=== PATIENT | female | born 1950 | race Caucasian/White ===

== ENCOUNTER 2022-10-10 22:12 | Observation (INO) | payer MEDICARE, OTHER ==
--- NOTE | 2022-10-10 22:19 | ED ---
General Adult HPI - General Source: RN notes reviewed <Simran Blackmon - Last Filed: 10/10/22 22:17> - General Source: RN notes reviewed, old records reviewed Limitations: no limitations - History of Present Illness -: hour(s) Radiation: non-radiation Severity scale (1-10): 7 Consistency: constant Improves with: none Worsens with: none Associated Symptoms: chest pain Treatments Prior to Arrival: none <Simeon Singer - Last Filed: 10/14/22 20:42> - General Stated complaint: Afib Time Seen by Provider: 10/10/22 22:18 - History of Present Illness Initial comments: 72 year old female with a past medical history significant for atrial fibrillation presents to the emergency department with a chief complaint of palpitations and chest pain x 1 hour. Denies nausea, vomiting, dizziness. (Simran Blackmon) This is a 72-year-old female to the emergency department for evaluation of chest pain, history of A. fib on [place]. Patient had chest pain palpitations and is concerned that if she A. fib with elevated heart rate. Patient has worsening pain when she takes a deep breath and worsening pain with exertion or movement. Patient does have high blood pressure high cholesterol. (Simeon Singer) - Related Data Home Medications Medication Instructions Recorded Confirmed Apixaban [Eliquis] 5 mg PO BID 10/11/22 10/11/22 Atorvastatin [Lipitor] 40 mg PO DAILY 10/11/22 10/11/22 Cholecalciferol [Vitamin D3 (125 125 mcg PO DAILY 10/11/22 10/11/22 Mcg = 5000 Iu)] FLUoxetine HCL [PROzac] 20 mg PO DAILY 10/11/22 10/11/22 Multivitamins, Thera [Multivitamin 1 tab PO DAILY 10/11/22 10/11/22 (formulary)] Omeprazole [PriLOSEC] 20 mg PO DAILY 10/11/22 10/11/22 Sotalol [Betapace] 40 mg PO BID 10/11/22 10/11/22 Vibegron [Gemtesa] 75 mg PO HS 10/11/22 10/11/22 buPROPion SR [Wellbutrin SR] 150 mg PO BID 10/11/22 10/11/22 Allergies Allergy/AdvReac Type Severity Reaction Status Date / Time morphine AdvReac Abdominal Verified 10/11/22 07:24 Pain Review of Systems ROS Other: All systems not noted in ROS Statement are negative. <Simran Blackmon - Last Filed: 10/10/22 22:17> ROS Other: All systems not noted in ROS Statement are negative. <MakaylakyreeSimeon Chuck - Last Filed: 10/14/22 20:42> ROS Statement: Those systems with pertinent positive or pertinent negative responses have been documented in the HPI. Past Medical History - Past Family History Father Family Medical History: No Reported History Mother Family Medical History: Hypertension Additional Family Medical History / Comment(s): mom at age of 94 <Simeon Singer - Last Filed: 10/14/22 20:42> General Exam <NeymarSimran - Last Filed: 10/10/22 22:17> General appearance: alert, in no apparent distress, anxious Head exam: Present: atraumatic, normocephalic, normal inspection Eye exam: Present: normal appearance, PERRL, EOMI. Absent: scleral icterus, conjunctival injection, periorbital swelling ENT exam: Present: normal exam, mucous membranes moist Neck exam: Present: normal inspection. Absent: tenderness, meningismus, lymphadenopathy Respiratory exam: Present: normal lung sounds bilaterally. Absent: respiratory distress, wheezes, rales, rhonchi, stridor Cardiovascular Exam: Present: regular rate, normal rhythm, normal heart sounds. Absent: systolic murmur, diastolic murmur, rubs, gallop, clicks GI/Abdominal exam: Present: soft, normal bowel sounds. Absent: distended, tenderness, guarding, rebound, rigid Extremities exam: Present: normal inspection, full ROM, normal capillary refill. Absent: tenderness, pedal edema, joint swelling, calf tenderness Back exam: Present: normal inspection Neurological exam: Present: alert, oriented X3, CN II-XII intact Psychiatric exam: Present: normal affect, normal mood Skin exam: Present: warm, dry, intact, normal color. Absent: rash <LucreciaSimeon - Last Filed: 10/14/22 20:42> - General Exam Comments Initial Comments: Visual Physical Exam Vital signs reviewed General: Well-appearing, nontoxic, no acute distress. Head: Normocephalic, atraumatic Eyes: PERRLA, EOMI ENT: Airway patent Chest: Nonlabored breathing Skin: No visual rash, normal skin tone Neuro: Alert and oriented 3 Musculoskeletal: No gross abnormalities I performed the quick note portion of this exam, verbal signature Simran colorado PA-C (Simran Blackmon) Course <Simeon Singer - Last Filed: 10/14/22 20:42> Vital Signs 10/10/22 10/11/22 10/11/22 22:18 02:00 04:00 Temperature 98.8 F Pulse Rate 82 73 81 Pulse Rate [ Pulse Oximetery ] Respiratory 18 16 16 Rate Blood Pressure 139/74 139/73 117/75 Blood Pressure [Left Arm] O2 Sat by Pulse 98 100 97 Oximetry 10/11/22 10/11/22 06:00 07:00 Temperature 98.5 F Pulse Rate 80 Pulse Rate [ 77 Pulse Oximetery ] Respiratory 16 18 Rate Blood Pressure 106/61 Blood Pressure 108/69 [Left Arm] O2 Sat by Pulse 97 97 Oximetry - Reevaluation(s) Reevaluation #1: 10/11/22 01:41 Medical records reviewed (Simeon Singer) Reevaluation #2: 10/11/22 01:41 Patient symptoms are unchanged, still with chest pain (Simeon Singer) Reevaluation #3: 10/11/22 01:41 Patient informed results questions answered (Simeon Singer) Reevaluation #4: 10/11/22 01:41 Was pt. sent in by a medical professional or institution ([facility], [facility], urgent care, hospital, or senior living...) When possible be specific @ -no Did you speak to anyone other than the patient for history (EMS, parent, family, police, friend...)? What history was obtained from this source @ -no Did you review nursing and triage notes (agree or disagree)? Why? @ -agree Are old charts reviewed (outside hosp., previous admission, EMS record, old EKG, old radiological studies, urgent care reports/EKG's, senior living records)? Report findings @ -yes Differential Diagnosis (chest pain, altered mental status, abdominal pain women, abdominal pain men, vaginal bleeding, weakness, fever, dyspnea, syncope, headache, dizziness, GI bleed, back pain, seizure, CVA, palpatations, mental health, musculoskeletal)? @ -prior EKG interpreted by me (3pts min.). @ -yes X-rays interpreted by me (1pt min.). @ -yes CT interpreted by me (1pt min.). @ -no U/S interpreted by me (1pt. min.). @ -no What testing was considered but not performed or refused? (CT, X-rays, U/S, labs)? Why? @ -none What meds were considered but not given or refused? Why? @ -none Did you discuss the management of the patient with other professionals (professionals i.e. , PA, [facility], lab, RT, psych nurse, social worker aide, casing material weigher, teacher, driver license reviewing officer, director of casework department)? Give summary @ -no Was smoking cessation discussed for >3mins.? @ -no Was critical care preformed (if so, how long)? @ -no Were there social determinants of health that impacted care today? How? (Homelessness, low income, unemployed, alcoholism, drug addiction, transportation, low edu. Level, literacy, decrease access to med. care, half-way, rehab)? @ -none Was there de-escalation of care discussed even if they declined (Discuss DNR or withdrawal of care, Hospice)? DNR status @ -no What co-morbidities impacted this encounter? (DM, HTN, Smoking, COPD, CAD, Cancer, CVA, ARF, Chemo, Hep., AIDS, mental health diagnosis, sleep apnea, morbid obesity)? @ -none Was patient admitted / discharged? Hospital course, mention meds given and route, prescriptions, significant lab abnormalities, going to OR and other pertinent info. @ - Undiagnosed new problem with uncertain prognosis? @ -no Drug Therapy requiring intensive monitoring for toxicity (Heparin, Nitro, Insulin, Cardizem)? @ -no Were any procedures done? @ -no Diagnosis/symptom? @ - Acute, or Chronic, or Acute on Chronic? @ -Acute Uncomplicated (without systemic symptoms) or Complicated (systemic symptoms)? @ -Complicated Side effects of treatment? @ -no Exacerbation, Progression, or Severe Exacerbation? @ -exacerbation Poses a threat to life or bodily function? How? (Chest pain, USA, MO, pneumonia, PE, COPD, DKA, ARF, appy, cholecystitis, CVA, Diverticulitis, Homicidal, Suicidal, threat to staff... and all critical care pts) @ -yes (Simeon Singer) Reevaluation #5: 10/11/22 01:41 Differential Chest Pain: Stable Angina, Unstable Angina, STEMI, NSTEMI Aortic Dissection, Pneumothorax, Musculoskeletal, Esophageal Spasm GERD, Cholecystitis, Pancreatitis, Zoster, this is not meant to be an all-inclusive list. Differential Palpitations Ventricular arrhythmias, atrial arrhythmias, myocardial infarction, anemia, thyrotoxicosis, electrolyte imbalance, hypokalemia, pulmonary embolism, pulmonary disease, drugs, alcohol, anxiety, stress.... This is not meant to be an all-inclusive list. (Simeon Singer) - Consultations Consultation #1: Spoke with [facility] who agreed to admit (Simeon Singer) EKG Findings - EKG Comments: EKG Findings:: EKG sinus 79 MO 158 QRS 77 QTc 387 <Simeon Singer - Last Filed: 10/14/22 20:42> Medical Decision Making - Lab Data Result diagrams: 10/10/22 22:35 10/10/22 22:35 - EKG Data -: EKG Interpreted by Me - Radiology Data Radiology results: report reviewed (Chest x-rays negative for acute disease), image reviewed <Simeon Sniger - Last Filed: 10/14/22 20:42> - Medical Decision Making 72 female to the emergency department for evaluation. Patient to the ER for evaluation of chest pain persistent chest pain, pleuritic type chest pain here in the emergency room. Patient will be admitted for chest pain observation with persistent chest pain history of cardiac risk factors to the emergency departme nt, patient is on anticoagulation will not need heparin here in the ER (Simeon Singer) - Lab Data Lab Results 10/10/22 10/10/22 10/10/22 Range/Units 22:35 22:35 22:35 WBC 9.6 (3.8-10.6) k/uL RBC 4.51 (3.80-5.40) m/uL Hgb 13.4 (11.4-16.0) gm/dL Hct 41.9 (34.0-46.0) % MCV 93.0 (80.0-100.0) fL MCH 29.8 (25.0-35.0) pg MCHC 32.0 (31.0-37.0) g/dL RDW 13.5 (11.5-15.5) % Plt Count 229 (150-450) k/uL MPV 6.8 Neutrophils % 63 % Lymphocytes % 28 % Monocytes % 5 % Eosinophils % 3 % Basophils % 0 % Neutrophils # 6.1 (1.3-7.7) k/uL Lymphocytes # 2.7 (1.0-4.8) k/uL Monocytes # 0.4 (0-1.0) k/uL Eosinophils # 0.3 (0-0.7) k/uL Basophils # 0.0 (0-0.2) k/uL PT 12.7 H (9.0-12.0) sec INR 1.2 H (<1.2) APTT 24.2 (22.0-30.0) sec Sodium 139 (137-145) mmol/L Potassium 3.9 (3.5-5.1) mmol/L Chloride 105 (98-107) mmol/L Carbon Dioxide 27 (22-30) mmol/L Anion Gap 7 mmol/L BUN 22 H (7-17) mg/dL Creatinine 0.77 (0.52-1.04) mg/dL Est GFR (CKD-EPI)AfAm 90 (>60 ml/min/1.73 sqM) Est GFR (CKD-EPI)NonAf 78 (>60 ml/min/1.73 sqM) Glucose 107 H (74-99) mg/dL Calcium 8.5 (8.4-10.2) mg/dL Magnesium 2.0 (1.6-2.3) mg/dL Total Bilirubin 0.4 (0.2-1.3) mg/dL AST 20 (14-36) U/L ALT 16 (4-34) U/L Alkaline Phosphatase 116 (38-126) U/L Troponin I (0.000-0.034) ng/mL Total Protein 6.4 (6.3-8.2) g/dL Albumin 3.7 (3.5-5.0) g/dL 08/23/23 Range/Units 22:35 WBC (3.8-10.6) k/uL RBC (3.80-5.40) m/uL Hgb (11.4-16.0) gm/dL Hct (34.0-46.0) % MCV (80.0-100.0) fL MCH (25.0-35.0) pg MCHC (31.0-37.0) g/dL RDW (11.5-15.5) % Plt Count (150-450) k/uL MPV Neutrophils % % Lymphocytes % % Monocytes % % Eosinophils % % Basophils % % Neutrophils # (1.3-7.7) k/uL Lymphocytes # (1.0-4.8) k/uL Monocytes # (0-1.0) k/uL Eosinophils # (0-0.7) k/uL Basophils # (0-0.2) k/uL PT (9.0-12.0) sec INR (<1.2) APTT (22.0-30.0) sec Sodium (137-145) mmol/L Potassium (3.5-5.1) mmol/L Chloride (98-107) mmol/L Carbon Dioxide (22-30) mmol/L Anion Gap mmol/L BUN (7-17) mg/dL Creatinine (0.52-1.04) mg/dL Est GFR (CKD-EPI)AfAm (>60 ml/min/1.73 sqM) Est GFR (CKD-EPI)NonAf (>60 ml/min/1.73 sqM) Glucose (74-99) mg/dL Calcium (8.4-10.2) mg/dL Magnesium (1.6-2.3) mg/dL Total Bilirubin (0.2-1.3) mg/dL AST (14-36) U/L ALT (4-34) U/L Alkaline Phosphatase (38-126) U/L Troponin I <0.012 (0.000-0.034) ng/mL Total Protein (6.3-8.2) g/dL Albumin (3.5-5.0) g/dL Critical Care Time Critical Care Time: Yes Total Critical Care Time: 31 <Simeon Singer - Last Filed: 10/14/22 20:42> Disposition <Simran Blackmon - Last Filed: 10/10/22 22:17> Is patient prescribed a controlled substance at d/c from ED?: No Time of Disposition: 01:40 <Simeon Singer - Last Filed: 10/14/22 20:42> Clinical Impression: Chest pain, Unstable angina Disposition: HOME SELF-CARE Condition: Stable
[2022-10-10 22:52] LABS: Basophils % (A) 0 %; Eosinophils # (A) 0.3 k/uL (0-0.7); Eosinophils % (A) 3 %; HCT 41.9 % (34.0-46.0); HGB 13.4 gm/dL (11.4-16.0); Lymphocytes # (A) 2.7 k/uL (1.0-4.8); Lymphocytes % (A) 28 %; MCH 29.8 pg (25.0-35.0); Mean Platelet Volume 6.8; Monocytes # (A) 0.4 k/uL (0-1.0); Monocytes % (A) 5 %; Neutrophils # (A) 6.1 k/uL (1.3-7.7); Neutrophils % (A) 63 %; Platelet Count 229 k/uL (150-450); RBC 4.51 m/uL (3.80-5.40); RDW 13.5 % (11.5-15.5); WBC 9.6 k/uL (3.8-10.6)
[2022-10-10 23:00] LABS: INR 1.2 (<1.2); Partial Thromboplastin Time 24.2 sec (22.0-30.0); Prothrombin Time 12.7 sec (9.0-12.0)
[2022-10-10 23:03] LABS: ALT 16 U/L (4-34); AST 20 U/L (14-36); African American GFR (CKD) 90 (>60 ml/min/1.73 sqM); Albumin 3.7 g/dL (3.5-5.0); Alkaline Phosphatase 116 U/L (38-126); Anion Gap 7 mmol/L; Blood Urea Nitrogen 22 mg/dL (7-17); Calcium 8.5 mg/dL (8.4-10.2); Carbon Dioxide 27 mmol/L (22-30); Chloride 105 mmol/L (98-107); Glucose 107 mg/dL (74-99); Non-African American GFR(CKD) 78 (>60 ml/min/1.73 sqM); Potassium 3.9 mmol/L (3.5-5.1); Sodium 139 mmol/L (137-145); Total Bilirubin 0.4 mg/dL (0.2-1.3); Total Protein 6.4 g/dL (6.3-8.2)
--- NOTE | 2022-10-10 23:28 | XR ---
EXAM: XR Chest, 2 Views CLINICAL HISTORY: ITS.REASON XR Reason: CHest pain TECHNIQUE: Frontal and lateral views of the chest. COMPARISON: No relevant prior studies available. FINDINGS: Lungs: Unremarkable. No consolidation. Pleural space: Unremarkable. No pneumothorax. Heart: Unremarkable. No cardiomegaly. Mediastinum: Unremarkable. Bones/joints: Unremarkable. Cholecystectomy. IMPRESSION: No focal infiltrate.
[2022-10-11] MEDS ORDERED: MORPHINE SULFATE 4 MG/ML SYRINGE IV PRN (01:42)
[2022-10-11] MEDS ORDERED: ONDANSETRON 4 MG/2 ML VIAL IVP PRN (01:42)
[2022-10-11] MEDS ORDERED: NALOXONE 0.4 MG/ML 1 ML VIAL IV PRN (01:42)
--- NOTE | 2022-10-11 08:58 | P.CRDCN ---
History of Present Illness History of present illness: This is Dr. Loyola dictating a consult on this patient The patient was interviewed and examined IMPRESSION / ASSESSMENT: Chest discomfort at rest radiating to the neck and lasting for a few hours Normal twelve-lead EKG during chest discomfort in the ER Hypertension Dyslipidemia History of atrial fibrillation, on anticoagulation Normal cardiac enzymes 3 Family history of DVT, her brother, no known genetic testing performed PLAN: 2-D echo and Doppler study to assess chronic structure and function Repeat twelve-lead EKG Ambulate in the hallways Watch for any recurrence of chest discomfort Observe on telemetry today Arrange for early follow-up with Dr. Sanford upon discharge HPI Patient stopped her daughter him the phone. She recently moved back to [place] She started experiencing precordial chest discomfort that went up into her neck. The pain lasted for a few hours and She came to the hospital The patient was still ongoing. Twelve-lead EKG was normal The treatment was given for the chest discomfort The pain gradually dissipated and this morning she has no discomfort 3 cardiac enzymes are normal Twelve-lead EKG during chest pain is normal Repeat EKG is awaited Labs are normal ROS: No fever chills or rigors, no cough, phlegm or expectoration, no nausea, vomiting or diarrhea, no hematuria, dysuria, no musculoskeletal complaints, no strokes or seizures, no skin lesions. EXAMINATION: Normal heart rates, absence of sinus tachycardia Afebrile Blood pressure 139/74 Heart sounds are normal No chest tenderness Lungs are clear Patient is comfortable lying flat in bed no chest discomfort REVIEW OF LABS, ECG & MEDICAL DATA Hemoglobin 13.4 Sodium 139 potassium 3.9 creatinine normal Troponin normal Past Medical History Past Medical History: Atrial Fibrillation, Hypertension History of Any Multi-Drug Resistant Organisms: None Reported Past Surgical History: Appendectomy, Cholecystectomy, Hysterectomy, Orthopedic Surgery Past Psychological History: No Psychological Hx Reported Smoking Status: Never smoker Past Alcohol Use History: None Reported Past Drug Use History: None Reported Medications and Allergies Home Medications Medication Instructions Recorded Confirmed Type Cholecalciferol [Vitamin D3 (125 125 mcg PO DAILY 10/11/22 10/11/22 History Mcg = 5000 Iu)] Eliquis (Unverified) 1 tab PO BID 10/11/22 10/11/22 History Gemtesa (Unverified) 1 tab PO HS 10/11/22 10/11/22 History Lipitor (Unverified) 1 tab PO DAILY 10/11/22 10/11/22 History Multivitamins, Thera [Multivitamin 1 tab PO DAILY 10/11/22 10/11/22 History (formulary)] Omeprazole [PriLOSEC] 20 mg PO DAILY 10/11/22 10/11/22 History Prozac (Unverified) 1 cap PO DAILY 10/11/22 10/11/22 History Sotalol (Unverified) 0.5 tab PO BID 10/11/22 10/11/22 History Wellbutrin Sr (Unverified) 1 tab PO BID 10/11/22 10/11/22 History Allergies Allergy/AdvReac Type Severity Reaction Status Date / Time morphine AdvReac Abdominal Verified 10/11/22 07:24 Pain Physical Exam Vitals: Vital Signs Temp Pulse Pulse Resp BP BP Pulse Ox 10/11/22 07:00 98.5 F 77 18 108/69 97 10/11/22 06:00 80 16 106/61 97 10/11/22 04:00 81 16 117/75 97 10/11/22 02:00 73 16 139/73 100 10/10/22 22:18 98.8 F 82 18 139/74 98 Intake and Output 10/10/22 10/11/22 10/11/22 22:59 06:59 14:59 Other: Weight 109.769 kg Results 10/10/22 22:35 10/10/22 22:35 Cardiac Enzymes 10/10/22 10/10/22 10/11/22 Range/Units 22:35 22:35 03:54 AST 20 (14-36) U/L Troponin I <0.012 <0.012 (0.000-0.034) ng/mL 10/11/22 Range/Units 06:12 AST (14-36) U/L Troponin I <0.012 (0.000-0.034) ng/mL Coagulation 10/10/22 Range/Units 22:35 PT 12.7 H (9.0-12.0) sec APTT 24.2 (22.0-30.0) sec CBC 10/10/22 Range/Units 22:35 WBC 9.6 (3.8-10.6) k/uL RBC 4.51 (3.80-5.40) m/uL Hgb 13.4 (11.4-16.0) gm/dL Hct 41.9 (34.0-46.0) % Plt Count 229 (150-450) k/uL Comprehensive Metabolic Panel 10/10/22 Range/Units 22:35 Sodium 139 (137-145) mmol/L Potassium 3.9 (3.5-5.1) mmol/L Chloride 105 (98-107) mmol/L Carbon Dioxide 27 (22-30) mmol/L BUN 22 H (7-17) mg/dL Creatinine 0.77 (0.52-1.04) mg/dL Glucose 107 H (74-99) mg/dL Calcium 8.5 (8.4-10.2) mg/dL AST 20 (14-36) U/L ALT 16 (4-34) U/L Alkaline Phosphatase 116 (38-126) U/L Total Protein 6.4 (6.3-8.2) g/dL Albumin 3.7 (3.5-5.0) g/dL Current Medications Generic Name Dose Route Start Last Admin Trade Name Freq PRN Reason Stop Dose Admin Morphine Sulfate 4 mg 10/11/22 01:42 Morphine Sulfate 4 Mg/Ml Syringe IV Q4HR PRN Severe Pain (Scale 7 to 10) Naloxone HCl 0.2 mg 10/11/22 01:42 Naloxone 0.4 Mg/Ml 1 Ml Vial IV Q2M PRN Opioid Reversal Ondansetron HCl 4 mg 10/11/22 01:42 Ondansetron 4 Mg/2 Ml Vial IVP Q8HR PRN Nausea And Vomiting Intake and Output 10/10/22 10/11/22 10/11/22 22:59 06:59 14:59 Other: Weight 109.769 kg 10/10/22 22:35 10/10/22 22:35
[2022-10-11] MEDS ORDERED: ATORVASTATIN 40 MG TAB PO SCH (12:15)
[2022-10-11] MEDS ORDERED: PANTOPRAZOLE 40 MG TABLET PO SCH (12:15)
[2022-10-11] MEDS ORDERED: SOTALOL 80 MG TAB PO SCH (12:15)
[2022-10-11] MEDS ORDERED: APIXABAN 5 MG TAB PO SCH (12:15)
[2022-10-11] MEDS ORDERED: CHOLECALCIFEROL 125 MCG (5000 IU) TABLET PO SCH (12:15)
[2022-10-11] MEDS ORDERED: buPROPion SR 150 MG TABLET.ER PO SCH (12:15)
[2022-10-11] MEDS ORDERED: MULTIVITAMINS, THERA 1 EACH TAB PO SCH (12:15)
[2022-10-11] MEDS ORDERED: FLUoxetine HCL 20 MG CAP PO SCH (12:15)
[2022-10-11 15:20] VITALS: BP 108/65; PULSE 80; RESP 20; TEMP 98.4
--- NOTE | 2022-10-11 15:24 | CA ---
Transthoracic Echo Report Name: Jazz Godoy Age: 72 Gender: F : 1950 Exam Date: 10/11/2022 09:40 Exam Location: [facility] Ht (in): 65 Wt (lb): 242 Ordering Physician: Adrian Loyola MD ([id number]) Attending/Referring Phys: David Sanchez MD ([id number]) Differential Tester Ryann Sandoval RDCS Procedure CPT: Indications: Chest Pain Cardiac Hx: Technical Quality: Fair Contrast 1: Total Dose (mL): Contrast 2: Total Dose (mL): MEASUREMENTS (Male / Female) Normal Values 2D ECHO LV Diastolic Diameter PLAX 4.2 cm 4.2 - 5.9 / 3.9 - 5.3 cm LV Systolic Diameter PLAX 2.8 cm IVS Diastolic Thickness 1.0 cm 0.6 - 1.0 / 0.6 - 0.9 cm LVPW Diastolic Thickness 1.3 cm 0.6 - 1.0 / 0.6 - 0.9 cm LV Relative Wall Thickness 0.6 RV Internal Dim ED PLAX 2.3 cm LA Volume 64.9 cm??? 18 - 58 / 22 - 52 cm??? M-MODE Aortic Root Diameter MM 3.5 cm LA Systolic Diameter MM 4.9 cm LA Ao Ratio MM 1.4 AV Cusp Separation MM 1.9 cm DOPPLER AV Peak Velocity 186.5 cm/s AV Peak Gradient 13.9 mmHg AV Mean Velocity 126.7 cm/s AV Mean Gradient 7.4 mmHg AV Velocity Time Integral 41.0 cm AI Peak Velocity 464.7 cm/s AI Peak Gradient 86.4 mmHg AI Pressure Half Time 559.7 ms LVOT Peak Velocity 123.7 cm/s LVOT Peak Gradient 6.1 mmHg LVOT Velocity Time Integral 29.3 cm MV Area PHT 2.5 cm??? Mitral E Point Velocity 128.7 cm/s Mitral A Point Velocity 140.0 cm/s Mitral E to A Ratio 0.9 MV Deceleration Time 299.3 ms MV E' Velocity 5.7 cm/s Mitral E to MV E' Ratio 22.7 TR Peak Velocity 250.7 cm/s TR Peak Gradient 25.1 mmHg Right Ventricular Systolic Press 30.1 mmHg FINDINGS Left Ventricle Mildly increased left ventricular wall thickness. Left ventricular cavity size normal. Normal left ventricular systolic function with no obvious regional wall motion abnormalities. Left ventricular ejection fraction is estimated at 55-60 %. Right Ventricle Normal right ventricular size and function. Right ventricular systolic pressure within normal limits. Right Atrium Normal right atrial size. Left Atrium Moderately increased left atrial volume. Mildly increased left atrial area. Mitral Valve Structurally normal mitral valve. No mitral stenosis or prolapse. Mild mitral regurgitation. Aortic Valve No aortic stenosis. Mild aortic regurgitation. Tricuspid Valve Structurally normal tricuspid valve. Mild tricuspid regurgitation. Pulmonic Valve Trace pulmonic regurgitation. Pericardium No pericardial effusion. Aorta Normal size aortic root and proximal ascending aorta. CONCLUSIONS Normal LV size and systolic function Left atrial enlargement Prominent pericardial stripe posteriorly Previewed by: Dr. Adrian Loyola MD (Electronically Signed) Final Date: 11 October 2022 15:23
--- NOTE | 2022-10-11 20:56 | P.HPIM ---
History of Present Illness H&P Date: 10/11/22 This is a 72-year-old female with history of atrial fibrillation, hypertension, anxiety depression. Patient is anticoagulated with eliquis, presents to the hospital with complaints of midsternal chest pain that started should the evening about 10 PM. Patient was not doing any activity when this pain started patient was also complaining of palpitations and shortness of breath and pleuritic chest pain. A chest x-ray was completed which was negative for any focal infiltrate or acute pulmonary process. EKG reveals sinus rhythm with heart rate of 79 patient is not in atrial fibrillation at the time of evaluation. Her troponin level has been negative 3. Patient was admitted to the hospital on her medicine with a consultation cardiology patient is currently in observation. Patient is denying any fever or chills she has no nausea vomiting or diarrhea she denies any dizziness or lightheadedness. She has no associated jaw pain or arm pain. At the time of my evaluation her chest pain has completely resolved. Cardiology is recommending an echocardiogram. REVIEW OF SYSTEMS: CONSTITUTIONAL: No fever, no malaise, no fatigue. HEENT: No recent visual problems or hearing problems. Denied any sore throat. CARDIOVASCULAR: reports chest pain mid with radiation to the jaw. resolved. or thopnea, PND, no palpitations, no syncope. PULMONARY: Reports shortness of breath and pleuritic chest pain. no cough, no hemoptysis. GASTROINTESTINAL: No diarrhea, no nausea, no vomiting, no abdominal pain. NEUROLOGICAL: No headaches, no weakness, no numbness. HEMATOLOGICAL: Denies any bleeding or petechiae. GENITOURINARY: Denies any burning micturition, frequency, or urgency. MUSCULOSKELETAL/RHEUMATOLOGICAL: Denies any joint pain, swelling, or any muscle pain. ENDOCRINE: Denies any polyuria or polydipsia. The rest of the 14-point review of systems is negative. PHYSICAL EXAMINATION: GENERAL: The patient is alert and oriented x3, not in any acute distress. Well developed, well nourished. HEENT: Pupils are round and equally reacting to light. EOMI. No scleral icterus. No conjunctival pallor. Normocephalic, atraumatic. No pharyngeal erythema. No thyromegaly. CARDIOVASCULAR: S1 and S2 present. No murmurs, rubs, or gallops. PULMONARY: Chest is clear to auscultation, no wheezing or crackles. ABDOMEN: Soft, nontender, nondistended, normoactive bowel sounds. No palpable organomegaly. MUSCULOSKELETAL: No joint swelling or deformity. EXTREMITIES: No cyanosis, clubbing, or pedal edema. NEUROLOGICAL: Gross neurological examination did not reveal any focal deficits. SKIN: No rashes. Assessment Chest pain troponin level negative x 3 no evidence for ACS. Palpitations patient may have flipped into afib which attributed to the chest discomfort. Symptoms have resolved and patient is in normal sinus rhythm. Hypertension Dyslipidemia Paroxysmal atrial fibrillation on anticoagulation. Family history of DVT GI prophylaxis DVT prophylaxis Full Code Plan Echocardiogram pending Cardiology evaluation Troponin negative, patient remains in atrial fibrillation no evidence for acute coronary syndrome. Patient if echo is normal will be dcd home to f/u with cardiology in the office. The impression and plan of care has been dictated by Mary Obrien Nurse Practitioner as directed. Dr. Kana MD I have performed a history and physical examination and medical decision making of this patient, discussed the same with the dictator, and agree with the dictators assessment and plan as written, documented as a scribe. Based on total visit time, I have performed more than 50% of this visit. Past Medical History Past Medical History: Atrial Fibrillation, Hypertension History of Any Multi-Drug Resistant Organisms: None Reported Past Surgical History: Appendectomy, Cholecystectomy, Hysterectomy, Orthopedic Surgery Past Psychological History: No Psychological Hx Reported Smoking Status: Never smoker Past Alcohol Use History: None Reported Past Drug Use History: None Reported - Past Family History Father Family Medical History: No Reported History Mother Family Medical History: Hypertension Additional Family Medical History / Comment(s): mom at age of 94 Medications and Allergies Home Medications Medication Instructions Recorded Confirmed Type Apixaban [Eliquis] 5 mg PO BID 10/11/22 10/11/22 History Atorvastatin [Lipitor] 40 mg PO DAILY 10/11/22 10/11/22 History Cholecalciferol [Vitamin D3 (125 125 mcg PO DAILY 10/11/22 10/11/22 History Mcg = 5000 Iu)] FLUoxetine HCL [PROzac] 20 mg PO DAILY 10/11/22 10/11/22 History Multivitamins, Thera [Multivitamin 1 tab PO DAILY 10/11/22 10/11/22 History (formulary)] Omeprazole [PriLOSEC] 20 mg PO DAILY 10/11/22 10/11/22 History Sotalol [Betapace] 40 mg PO BID 10/11/22 10/11/22 History Vibegron [Gemtesa] 75 mg PO HS 10/11/22 10/11/22 History buPROPion SR [Wellbutrin SR] 150 mg PO BID 10/11/22 10/11/22 History Allergies Allergy/AdvReac Type Severity Reaction Status Date / Time morphine AdvReac Abdominal Verified 10/11/22 07:24 Pain Physical Exam Vitals: Vital Signs Temp Pulse Pulse Resp BP BP Pulse Ox 10/11/22 07:00 98.5 F 77 18 108/69 97 10/11/22 06:00 80 16 106/61 97 10/11/22 04:00 81 16 117/75 97 10/11/22 02:00 73 16 139/73 100 10/10/22 22:18 98.8 F 82 18 139/74 98 Intake and Output 10/10/22 10/11/22 10/11/22 22:59 06:59 14:59 Other: Weight 109.769 kg Results CBC & Chem 7: 10/10/22 22:35 10/10/22 22:35 Labs: Abnormal Lab Results - Last 24 Hours (Table) 10/10/22 10/10/22 Range/Units 22:35 22:35 PT 12.7 H (9.0-12.0) sec INR 1.2 H (<1.2) BUN 22 H (7-17) mg/dL Glucose 107 H (74-99) mg/dL Assessment and Plan Time with Patient: Less than 30
--- NOTE | 2022-10-11 20:59 | P.DS ---
Providers Date of admission: 10/11/22 01:43 Attending physician: Rudy Alvarenga Consults: 10/11/22 01:42 Consult Physician Routine Consulting Provider: John Banuelos Consult Reason/Comments: cp Do you want consulting provider notified?: Yes Primary care physician: Braxton Suarez Hospital Course: Final Diagnosis 'Chest pain troponin level negative x 3 no evidence for ACS. Palpitations patient may have flipped into afib which attributed to the chest discomfort. Symptoms have resolved and patient is in normal sinus rhythm. Hypertension Dyslipidemia Paroxysmal atrial fibrillation on anticoagulation. Family history of DVT GI prophylaxis DVT prophylaxis Full Code Discharge Disposition Patient is stable for discharge home on same home medications. Patient to follow up with cardiology in the office. Hospital Course This is a 72-year-old female with history of atrial fibrillation, hypertension, anxiety depression. Patient is anticoagulated with eliquis, presents to the hospital with complaints of midsternal chest pain that started should the evening about 10 PM. Patient was not doing any activity when this pain started patient was also complaining of palpitations and shortness of breath and pleuritic chest pain. A chest x-ray was completed which was negative for any focal infiltrate or acute pulmonary process. EKG reveals sinus rhythm with heart rate of 79 patient is not in atrial fibrillation at the time of evaluation. Her troponin level has been negative 3. Patient was admitted to the hospital on her medicine with a consultation cardiology patient is currently in observation. Patient is denying any fever or chills she has no nausea vomiting or diarrhea she denies any dizziness or lightheadedness. She has no associated jaw pain or arm pain. At the time of my evaluation her chest pain has completely resolved. Echocardiogram has been done showing normal LV size and systolic function, left atrial enlargement, prominent pericardial stripe posteriorly. Cardiology has reviewed and patient cleared for discharge. Currently denying chest pain, denying shortness of breath. Lungs are clear S1 S2 auscultated, abdomen is soft and nontender. Patient will be DCd home. Please see medication reconcilation for a list of current medication. Thank you for allowing us to participate in the care of this patient. The impression and plan of care has been dictated by Mary Obrien Nurse Practitioner as directed. Dr. Kana MD I have performed a history and physical examination and medical decision making of this patient, discussed the same with the dictator, and agree with the dictators assessment and plan as written, documented as a scribe. Based on total visit time, I have performed more than 50% of this visit. Patient Condition at Discharge: Stable Plan - Discharge Summary Discharge Rx Participant: No New Discharge Prescriptions: Continue Cholecalciferol [Vitamin D3 (125 Mcg = 5000 Iu)] 125 mcg PO DAILY Sotalol [Betapace] 40 mg PO BID Atorvastatin [Lipitor] 40 mg PO DAILY Vibegron [Gemtesa] 75 mg PO HS FLUoxetine HCL [PROzac] 20 mg PO DAILY Omeprazole [PriLOSEC] 20 mg PO DAILY Multivitamins, Thera [Multivitamin (formulary)] 1 tab PO DAILY Apixaban [Eliquis] 5 mg PO BID buPROPion SR [Wellbutrin SR] 150 mg PO BID Discharge Medication List Apixaban [Eliquis] 5 mg PO BID 10/11/22 [History] Atorvastatin [Lipitor] 40 mg PO DAILY 10/11/22 [History] Cholecalciferol [Vitamin D3 (125 Mcg = 5000 Iu)] 125 mcg PO DAILY 10/11/22 [History] FLUoxetine HCL [PROzac] 20 mg PO DAILY 10/11/22 [History] Multivitamins, Thera [Multivitamin (formulary)] 1 tab PO DAILY 10/11/22 [History] Omeprazole [PriLOSEC] 20 mg PO DAILY 10/11/22 [History] Sotalol [Betapace] 40 mg PO BID 10/11/22 [History] Vibegron [Gemtesa] 75 mg PO HS 10/11/22 [History] buPROPion SR [Wellbutrin SR] 150 mg PO BID 10/11/22 [History] Follow up Appointment(s)/Referral(s): Radha Kent NPC [Family Provider] - 1-2 days David Sanchez MD [STAFF PHYSICIAN] - 10/12/22 4:00 pm Activity/Diet/Wound Care/Special Instructions: Activity Limited until follow-up Follow-up with primary care provider on discharge Continue taking medications as prescribed Follow-up with cardiology in one week as scheduled Discharge Disposition: HOME SELF-CARE
[2022-10-11] MEDS ORDERED: NON FORMULARY DRUG (Vibegron [Gemtesa] 75 MG Tablet) PO SCH (21:00)
== END 2022-10-11 16:34 | disposition home or self-care (01) ==
LOC: EC 22:12 → 6NMEDSUR 10-11 01:43
PROVIDERS: ADMIT Hospitalist; ATTEND Hospitalist
DX: R07.9 Chest pain, unspecified (principal); R00.2 Palpitations; I48.0 Paroxysmal atrial fibrillation; I10 Essential (primary) hypertension; E78.00 Pure hypercholesterolemia, unspecified; F41.9 Anxiety disorder, unspecified; F32.A Depression, unspecified; Z79.01 Long term (current) use of anticoagulants; Z79.899 Other long term (current) drug therapy; Z88.5 Allergy status to narcotic agent; Z82.49 Family history of ischemic heart disease and other diseases of the circulatory system
CPT/HCPCS: 99291; 36415; 93005; 93306; 80053; 83735; 84484 ×2; 85025; 85610; 85730; 71046; G0378; S0106; 80061; 83036

== ENCOUNTER → 2023-12-10 | Outpatient (CLI) | payer MEDICARE, OTHER ==
--- NOTE | 2023-12-10 17:58 | US ---
EXAMINATION TYPE: US kidneys/renal and bladder DATE OF EXAM: 12/10/2023 COMPARISON: US 11/15/2022 CLINICAL INDICATION: Female, 73 years old with history of N28.1 CYST OF KIDNEY, ACQUIRED; Cyst of kid marlin TECHNIQUE: Grayscale and color Doppler imaging of the bilateral kidneys and urinary bladder: FINDINGS: EXAM MEASUREMENTS: Right Kidney: 11.8 x 5.1 x 4.6 cm Left Kidney: 11.2 x 5.0 x 4.8 cm Right Kidney: *Hypoechoic area seen upper medial pole= 1.7 x 2.0 x 1.9 cm. Left Kidney: No hydronephrosis or masses seen Bladder: Appears anechoic Bilateral Jets seen: Yes No hydronephrosis or shadowing renal calculi. Cortical medullary differentiation is maintained bilate rally. Exophytic right upper medial pole hypoechoic 2.0 cm without internal color flow. Previously me asured up to 1.4 cm. No left renal lesions. Urinary bladder is anechoic with bilateral ureter jets id entified. IMPRESSION: Increased size of upper pole hypoechoic right renal cortical lesion now measuring 2.0 cm, previously 1.4 cm. No internal color flow. Possible cortical cyst with malignancy not excluded. Recommend furthe r evaluation with CT or MR abdomen with IV contrast (renal mass protocol). [facility], , 12/10/2023 5:56 PM
== END | disposition home or self-care (01) ==
LOC: RADUSWWP 07:35
PROVIDERS: ATTEND Urology
DX: N28.1 Cyst of kidney, acquired (principal)
CPT/HCPCS: 76770

== ENCOUNTER → 2023-12-19 | Outpatient (CLI) | payer MEDICARE, OTHER ==
[2023-12-19 11:40] LABS: African American GFR (CKD) >90 (>60 ml/min/1.73 sqM); Blood Urea Nitrogen 17 mg/dL (7-17); Non-African American GFR(CKD) 87 (>60 ml/min/1.73 sqM)
--- NOTE | 2023-12-19 12:58 | CT ---
EXAMINATION TYPE: CT abdomen wo/w con DATE OF EXAM: 12/19/2023 COMPARISON: None CLINICAL INDICATION: Female, 73 years old with history of N28.1 RENAL CYST; PHH, rt side kidney cyst TECHNIQUE: Performed with Oral Contrast and without and with IV Contrast, patient injected with 100ml mL of Isov ue 300. CT DLP: 1973.[address] CTDI: mGy Automated exposure control for dose reduction was used. FINDINGS: The lung bases are clear. There is surgical absence of the gallbladder. There is no biliary ductal dilatation. There is no focal mass or organomegaly involving the liver, pancreas, spleen or adrenal glands. There is no solid renal mass or hydronephrosis and there is homogeneous contrast enhancement of the r enal parenchyma. There are 3 simple cysts in the right kidney the largest of which is approximately 2 cm is found on the upper pole. It is partially exophytic. The caliber the abdominal aorta is normal is no retroperitoneal adenopathy or hemorrhage. The bowel loops are normal in caliber and there is no evidence of dilatation or obstruction. No infla mmatory changes are identified in the bowel wall or mesentery. There is no free intraperitoneal air or fluid. The osseous structures and soft tissues are intact. IMPRESSION: 3 small cysts of the right kidney. There is no solid renal mass, renal calcification or hydronephrosi s. No other significant abnormalities within the abdomen. [facility], , 12/19/2023 12:56 PM
== END | disposition home or self-care (01) ==
LOC: RADCTMAIN 10:50
PROVIDERS: ATTEND Urology
CPT/HCPCS: 36415; 74170; 82565; 84520

== ENCOUNTER → 2024-03-20 | Outpatient (CLI) | payer MEDICARE, OTHER ==
[2024-03-20 15:12] LABS: ALT 16 U/L (8-44); AST 19 U/L (13-35); LDL Cholesterol,Calculated 68.6 mg/dL (0.0-131.0); VLDL Calculation 9.26 mg/dL (5.00-40.00)
== END | disposition home or self-care (01) ==
LOC: LABWHC1 11:08
PROVIDERS: ATTEND Internal Medicine Cardiovascular Disease
DX: E78.2 Mixed hyperlipidemia (principal)
CPT/HCPCS: 36415; 80061; 84450; 84460

== ENCOUNTER → 2024-08-06 | Outpatient (CLI) | payer MEDICARE, OTHER ==
--- NOTE | 2024-08-06 13:16 | BD ---
EXAMINATION TYPE: Axial Bone Density DATE OF EXAM: 08/06/2024 CLINICAL HISTORY: 74 years old Female. ICD-10 CODE: Z78.0 ASYMPTOMATIC MENOPAUSAL , Additional Hist ory: Height: 62 Weight: 230 FRAX RISK QUESTIONS: Family History (Parent hip fracture): yes History of Fracture in Adulthood: yes, multiple Secondary Osteoporosis: RISK FACTORS HISTORY OF: Hip Fracture (Right/Left): right femur and pelvis fracture When: 2018 History of Wrist Fracture: left wrist When: 2022 Surgery to Spine/Hip(right/left)/Wrist (right/left): none When: MEDICATIONS: EXAM MEASUREMENTS: Bone mineral densitometry was performed using the [email or web address] System. Bone mineral density as measured about the Lumbar spine is: ----- L1-L4(G/cm2): 1.093 T Score Values are as follows: ----- L1: -1.9 ----- L2: -2.4 ----- L3: 0.7 ----- L4: -0.1 ----- L1-L4: -0.7 Z Score Values are as follows: ----- L1: -1.4 ----- L2: -1.9 ----- L3: 1.2 ----- L4: 0.4 ----- L1-L4: -0.2 First dexa at [facility] Bone mineral density about the R hip (g/cm2): 0.780 Bone mineral density about the L hip (g/cm2): 0.795 T Score values are as follows: -----R Neck: -2.5 -----L Neck: -2.2 -----R Total: -1.8 -----L Total: -1.7 Z Score values are as follows: -----R Neck: -1.4 -----L Neck: -1.2 -----R Total: -1.0 -----L Total: -0.9 First dexa at [facility] FRAX%s: The graph provided illustrates a 33.7% chance for a major osteoporotic fx and a 17.1% chance for the hips probability for fx in 10 years time. IMPRESSION: Osteoporosis (T Score less than -2.5). There is increased fracture risk and therapy is usually indicated based on age. Re-Screen 1-2 years. NOTE: T-SCORE=SD OF THE YOUNG ADULT MEAN. [facility], , 08/06/2024 1:13 PM
--- NOTE | 2024-08-07 07:45 | MM ---
Reason for Exam: Screening (asymptomatic). Last mammogram was performed 1 year(s) and 2 month(s) ago. Patient History: Menarche at age 15. First Full-Term at age 22. Left ovary removed at age 47. Right ovary removed at age 47. Hysterectomy at age 47. Postmenopausal. Risk Values: Chantelle 5 year model risk: 1.4%. NCI Lifetime model risk: 3.6%. Tissue Density: There are scattered areas of fibroglandular density. Findings: Analyzed By CAD. Microclip left breast from prior biopsy. There is no suspicious group of microcalcifications or new suspicious mass in either breast. Overall Assessment: Negative, BI-RAD 1 Management: Screening Mammogram of both breasts in 1 year. Patient should continue monthly self-breast exams. A clinical breast exam by your physician is recommended on an annual basis. This exam should not preclude additional follow-up of suspicious palpable abnormalities. Note on Chantelle scores and lifetime risk: 1. A Chantelle score greater than 3% is considered moderate risk. If this is the case, consider specialist referral to assess eligibility for a risk reducing agent. 2. If overall lifetime risk for the development of breast cancer is 20% or higher, the patient may qualify for future screening with alternating mammogram and breast MRI. [facility], , 08/07/2024 7:42 AM. Electronically signed and approved by: Cinthya Torres M.D. Radiologist
== END | disposition home or self-care (01) ==
LOC: RADBDWWP 10:23
PROVIDERS: ATTEND Family Medicine
DX: Z12.31 Encounter for screening mammogram for malignant neoplasm of breast (principal); M81.0 Age-related osteoporosis without current pathological fracture; R92.323 Mammographic fibroglandular density, bilateral breasts; Z78.0 Asymptomatic menopausal state
CPT/HCPCS: 77063; 77067; 77080